=== PATIENT | male | born 1995 | race Caucasian/White ===

== ENCOUNTER 2016-08-01 17:22 | Emergency (ER) | payer OTHER ==
--- NOTE | 2016-08-16 15:51 | ER ---
ADMIT: 08/01/2016 RM/LOC: ER [facility] MR#: [id number] [address] [id number] [place] YOON [address] [place] [id number] Emergency Room Report SEX: M AGE: 20 : 1995 DATE: 08/01/2016 This 20-year-old, who was helping friends when a ornamental metal erector flew back and caught him in the right forearm causing a laceration. See T-sheet for remainder of history and physical. Wound was extensively irrigated, subsequently sutured. See T sheet for remainder of history and physical. The patient was instructed to remove the superficial sutures in 10-14 days. Given prescription for Keflex. DIAGNOSIS: Laceration repair. Francisco Hurtado MD/ pierre JOB #: [id number] CC: Kashmir Walker MD, Attending Physician Garcia Cosby MD, Family Physician
== END 2016-08-01 18:20 | disposition home or self-care (01) ==
LOC: ER 17:22
PROC: 0HQDXZZ Repair Right Lower Arm Skin, External Approach (ICD-10-PCS; principal; 2016-08-01)
DX: S51.811A Laceration without foreign body of right forearm, initial encounter (principal); Z88.0 Allergy status to penicillin; W22.8XXA Striking against or struck by other objects, initial encounter; Z23 Encounter for immunization